=== PATIENT | male | born 1970 | race Caucasian/White ===

== ENCOUNTER → 2020-12-05 | Outpatient (CLI) | payer OTHER ==
[2020-12-05 07:00] LABS: HEMOGLOBIN 16.8 gm/dl (14.0-17.5); RED BLOOD COUNT 5.27 M/UL (4.20-5.50); WHITE BLOOD COUNT 7.8 K/UL (4.5-11.0)
[2020-12-05 07:21] LABS: BUN/CREATININE RATIO 16 (0-10)
== END ==
LOC: LAB 06:08
PROVIDERS: Nurse Practitioner
DX: R42 Dizziness and giddiness (principal); I10 Essential (primary) hypertension; E78.5 Hyperlipidemia, unspecified; E55.9 Vitamin D deficiency, unspecified; R73.9 Hyperglycemia, unspecified; M54.2 Cervicalgia; M47.812 Spondylosis without myelopathy or radiculopathy, cervical region
CPT/HCPCS: 36415; 72050; 80053; 80061; 83036; 84443; 85025; 85652

== ENCOUNTER 2021-03-14 10:30 | Emergency (ER) | payer BC, OTHER ==
[2021-03-14 12:52] LABS: HEMOGLOBIN 16.4 gm/dl (14.0-17.5); RED BLOOD COUNT 5.02 M/UL (4.20-5.50); WHITE BLOOD COUNT 5.9 K/UL (4.5-11.0)
[2021-03-14 13:10] LABS: BUN/CREATININE RATIO 13 (0-10)
== END 2021-03-14 14:46 | disposition home or self-care (01) ==
LOC: ER1 10:30
PROVIDERS: Physician Assistant
DX: R03.0 Elevated blood-pressure reading, without diagnosis of hypertension (principal); I10 Essential (primary) hypertension; Z79.01 Long term (current) use of anticoagulants
CPT/HCPCS: 80048; 83735; 85025; 93005; 99283

== ENCOUNTER → 2021-06-19 | Outpatient (CLI) | payer BC, OTHER ==
[2021-06-19 07:47] LABS: HEMOGLOBIN 16.4 gm/dl (14.0-17.5); RED BLOOD COUNT 5.32 M/UL (4.20-5.50); WHITE BLOOD COUNT 8.5 K/UL (4.5-11.0)
[2021-06-19 08:25] LABS: BUN/CREATININE RATIO 14 (0-10)
== END ==
LOC: LAB 07:10
PROVIDERS: Nurse Practitioner
DX: R06.09 Other forms of dyspnea (principal); I10 Essential (primary) hypertension; E78.5 Hyperlipidemia, unspecified; E55.9 Vitamin D deficiency, unspecified; R73.9 Hyperglycemia, unspecified
CPT/HCPCS: 36415; 80053; 80061; 83036; 85025

== ENCOUNTER → 2021-06-30 | Outpatient (CLI) | payer BC, OTHER ==
[~2021-06-30] MED LIST: BAYER CHEWABLE81 MG PO
== END ==
LOC: SLEEP 11:01
DX: E66.9 Obesity, unspecified (principal); Z68.38 Body mass index [BMI] 38.0-38.9, adult; G47.10 Hypersomnia, unspecified; G47.33 Obstructive sleep apnea (adult) (pediatric)
CPT/HCPCS: 95811

== ENCOUNTER 2021-07-03 22:43 | Emergency (ER) | payer BC, OTHER ==
[2021-07-03 23:31] LABS: BUN/CREATININE RATIO 12 (0-10)
[2021-07-03 23:42] LABS: HEMOGLOBIN 16.2 gm/dl (14.0-17.5); RED BLOOD COUNT 4.95 M/UL (4.20-5.50)
[2021-07-04] MEDS ORDERED: BAYER CHEWABLE81 MG PO (03:00)
== END 2021-07-04 03:40 | disposition home or self-care (01) ==
LOC: ER1 22:43
DX: R07.9 Chest pain, unspecified (principal); I10 Essential (primary) hypertension; Z20.822 Contact with and (suspected) exposure to COVID-19
CPT/HCPCS: 71045; 80053; 82550; 82553; 83874; 84484; 85025; 93005; 99285; Q9967; U0002

== ENCOUNTER 2021-09-17 17:48 | Emergency (ER) | payer BC, OTHER ==
[2021-09-17 20:30] LABS: HEMOGLOBIN 15.9 gm/dl (14.0-17.5); RED BLOOD COUNT 5.08 M/UL (4.20-5.50); WHITE BLOOD COUNT 6.2 K/UL (4.5-11.0)
[2021-09-17 21:03] LABS: BUN/CREATININE RATIO 12 (0-10)
[2021-09-18] MEDS ORDERED: ZOFRAN ODT 4 MG4 MG PO (01:59)
[2021-09-18] MEDS ORDERED: PROVENTIL HFA6.7 GM INH (01:59)
[2021-09-18] MEDS ORDERED: LODINE CAP 300300 MG PO (01:59)
== END 2021-09-18 02:05 | disposition home or self-care (01) ==
LOC: ER1 17:48
PROVIDERS: Physician Assistant
DX: U07.1 COVID-19 (principal)
CPT/HCPCS: 0240U; 71045; 80053; 81001; 82550; 82553; 83735; 84484; 85025; 87086; 93005; 99284